=== PATIENT | male | born 1985 | race African-American/Black ===

== ENCOUNTER 2019-10-21 14:10 | Emergency (ER) | payer OTHER, SELFPAY ==
--- NOTE | ~2019-10-21 | XR_ITS ---
XR chest 2V DATE: 10/21/2019 14:47 INDICATION: Dyspnea TECHNIQUE: PA and lateral views COMPARISON: None FINDINGS: Normal heart size. No hilar or mediastinal enlargement. No pulmonary infiltrate or consolid ation, pleural effusion or pulmonary vascular congestion or pneumothorax. Included skeletal structure s are unremarkable other than minimal dextroscoliosis of the thoracic spine. IMPRESSION: No active cardiopulmonary disease Reviewed, dictated and finalized at location A.
[2019-10-21 14:19] VITALS: BP 126/86; PULSE 80; RESP 20; TEMP 36.9; O2SAT 100
--- NOTE | 2019-10-21 14:37 | ED.SOB ---
HPI - SOB/Dyspnea General Chief Complaint: Shortness of Breath/Dyspnea Stated Complaint: sob, asthma Time Seen by Provider: 10/21/19 14:23 Source: patient and family Mode of arrival: ambulatory Limitations: no limitations History of Present Illness HPI Narrative: Patient is a 34-year-old male who presents to the emergency department with complaint of shortness of breath and possible asthma attack. Patient has known history of asthma, but states he has not had any problems with his asthma in quite some time. Patient reports sudden onset of shortness of breath while at rest approximately half an hour ago. Patient denies any cough or chest pain. Patient had nausea and vomiting prior to arrival. He reports chills but denies any fever. He denies any sick contacts. MD elicited complaint: shortness of breath and asthma attack Pertinent past history: asthma Onset (ago): minute(s) (30) Timing: constant Exacerbating factors: nothing Relieving factors: nothing Known history of: asthma Treatment prior to arrival: none Related Data Home Medications Medication Instructions Recorded Confirmed No Home Medications 10/21/19 10/21/19 Allergies Allergy/AdvReac Type Severity Reaction Status Date / Time No Known Allergies Allergy Verified 10/21/19 14:22 Review of Systems Review of Systems: All systems reviewed & are unremarkable except as noted in HPI and below Constitutional: Constitutional: Reports chills and Denies fever(s) ENT: Denies nasal congestion, Denies nasal discharge and Denies sore throat Cardiovascular: Cardiovascular: Denies chest pain Respiratory: Respiratory: Denies cough, Reports dyspnea and Denies wheezing Gastrointestinal: Gastrointestinal: Reports nausea and Reports vomiting PMFSH Past Medical History Medical History (Updated 10/21/19 @ 15:53 by Danica Maurer MD) Asthma Social History Social History (Updated 10/21/19 @ 14:41 by Danica Maurer MD) Smoking status: Current every day smoker Tobacco type: cigarettes Exam Const: General: cooperative, no acute distress and alert Nutritional Appearance: well nourished Orientation/consciousness: patient oriented x3 Limitations: no limitations HENMT: Mouth: Yes lip normal and Yes moist mucous membranes Resp: Effort & Inspection: normal respiratory effort Auscultation: clear to auscultation bilaterally Cardio: Rate: regular rate Rhythm: regular rhythm GI: GI Palp: Yes Soft to palpation and No Tenderness to palpation present (GI) Auscultation: normal bowel sounds Skin: General skin exam: normal color Neuro: General: patient oriented x3 Cognition (Neuro): normal cognition Speech: normal speech Extrem: General: normal to inspection, full ROM and no clubbing, cyanosis or edema Psych: Mental Status: mental status grossly normal Affect: normal affect Attitude: cooperative Course Course Emergency Course: Peak flow assessed by respiratory therapy and noted to be 200 pretreatment. Patient administered 4 puffs of albuterol inhaler and was noted to have improvement in his peak flow to 350 posttreatment. Patient reports improvement in symptoms. Patient is afebrile and is not displaying any cough or other overt illness symptoms. Patient inquired about COVID-19 testing. Patient advised he does not have any other symptoms or abnormalities on exam to warrant testing at this time. Advised referral to on-call primary care physician for follow-up care and to return to the ED if he has worsening respiratory symptoms. Patient sent home with albuterol inhaler used in the emergency department. Vital Signs Vital signs: Vital Signs Temperature 98.4 F 10/21/19 14:19 Pulse Rate 80 10/21/19 14:19 Respiratory Rate 20 10/21/19 14:19 Blood Pressure 126/86 10/21/19 14:19 Pulse Oximetry 100 10/21/19 14:19 Temperature 98.4 F 10/21/19 14:19 Pulse Rate 80 10/21/19 14:19 Respiratory Rate 20 10/21/19 14:19 Blood Pre
[2019-10-21] MEDS: ALBUTEROL SULFATE (*SP) AEROSOL 1 PUFF 4 PUFF INHALATION (15:05)
[2019-10-21 15:59] VITALS: BP 121/80; PULSE 73; RESP 18; O2SAT 100
== END 2019-10-21 16:01 | disposition home or self-care (01) ==
PROVIDERS: Emergency Provider Emergency Medicine
DX: J45.21 Mild intermittent asthma with (acute) exacerbation (principal); F17.210 Nicotine dependence, cigarettes, uncomplicated
CPT/HCPCS: 71046; 99283; A9270

== ENCOUNTER 2019-10-21 17:00 | Emergency (ER) | payer OTHER, SELFPAY ==
[2019-10-21 17:03] VITALS: BP 122/78; PULSE 65; RESP 20; TEMP 37.2; O2SAT 99
--- NOTE | 2019-10-21 18:10 | ED.URI ---
HPI - URI/Sore Throat General Chief Complaint: Upper Respiratory Infection Stated Complaint: my inhaler isn't working Time Seen by Provider: 10/21/19 17:45 Source: patient Mode of arrival: ambulatory Limitations: no limitations History of Present Illness HPI Narrative: This is a 34 year old male that presents to the ER for shortness of breath. Reports he was seen here for this and just discharged. Reports he has continued to feel short of breath. Also reports rhinorrhea. Reports history of seasonal allergies. Denies fever, chest pain, sore throat. Related Data Allergies Allergy/AdvReac Type Severity Reaction Status Date / Time No Known Allergies Allergy Verified 10/21/19 14:22 Review of Systems Review of Systems: Narrative: CONSTITUTIONAL: Denies fever ENT: Reports rhinorrhea. Denies congestion, sore throat, or otalgia. CARDIOVASCULAR: Denies chest pain RESPIRATORY: Reports dyspnea. Denies cough All systems reviewed & are unremarkable except as noted in HPI and below PMFSH Past Medical History Medical History (Updated 10/21/19 @ 18:18 by Jolie Gonzalez PA-C) Asthma Seasonal allergies Social History Social History (Updated 10/21/19 @ 14:41 by Danica Maurer MD) Smoking status: Current every day smoker Tobacco type: cigarettes Exam Narrative: Exam Narrative: GENERAL: Well-appearing, well-nourished, and in no acute distress. HEAD: Normocephalic, atraumatic. EYES: EOMI. ENT: Turbinates swollen and pale. Mucous membranes moist. Oropharynx without tonsillar hypertrophy exudate or other lesions. Bilateral TMs pearly maravilla non-bulging NECK: Supple. No adenopathy or masses. CHEST: Clear to auscultation. No respiratory distress. No wheezes rales or rhonchi HEART: Regular rate and rhythm. No murmur heard. Normal peripheral pulses. EXTREMITIES: Normal range of motion. No edema. SKIN: Warm, dry, no rash. NEURO: No focal deficits. Alert and oriented x3. PSYCH: Normal mood and affect Course Vital Signs Vital signs: Vital Signs Temperature 98.9 F 10/21/19 17:03 Pulse Rate 65 10/21/19 17:03 Respiratory Rate 20 10/21/19 17:03 Blood Pressure 122/78 10/21/19 17:03 Pulse Oximetry 99 10/21/19 17:03 Temperature 98.9 F 10/21/19 17:03 Pulse Rate 65 10/21/19 17:03 Respiratory Rate 20 10/21/19 17:03 Blood Pressure 122/78 10/21/19 17:03 Pulse Oximetry 99 10/21/19 17:03 MDM - URI/Sore Throat MDM Narrative Medical decision making narrative: Patient presents to the ER for shortness of breath. He was just seen here and discharged after being seen for asthma exacerbation. His vitals are normal. Lungs are clear on exam. His chest Xray was normal. Patient has an albuterol inhaler as needed. Will add on a steroid. Was instructed to take Zyrtec daily for his allergies. Patient is to follow up with primary care doctor Critical Care Time Critical Care Time Critical Care Time: No Discharge Plan Discharge Clinical Impression: Asthma attack Qualifiers: Asthma severity: mild Asthma persistence: intermittent Qualified Code(s): J45.21 - Mild intermittent asthma with (acute) exacerbation Patient Disposition: Home, Self-Care Condition: Stable Instructions: Asthma (ED), Allergies (ED) Additional Instructions: Return to the emergency department if you experience fever, chest pain, worsening shortness of breath, or any other symptoms that are concerning to you Take Zyrtec daily. Take steroid as prescribed. Albuterol as needed for shortness of breath Follow-up with primary care doctor Prescriptions: New prednisone 20 mg tablet 40 mg PO DAILY 5 Days Qty: 10 RF: 0 Follow-up/Referrals: Kirill Sheikh Jr., MD [Physician] - 3 Days PHYSICIAN,COAL CUTTER [Primary Care Provider] -
[2019-10-21 18:34] VITALS: BP 122/76; PULSE 60; RESP 20; O2SAT 100
== END 2019-10-21 18:36 | disposition home or self-care (01) ==
PROVIDERS: Emergency Provider Emergency Medicine; PCP Physician Assistant
DX: J45.21 Mild intermittent asthma with (acute) exacerbation (principal); F17.218 Nicotine dependence, cigarettes, with other nicotine-induced disorders
CPT/HCPCS: 99283

== ENCOUNTER 2020-07-31 07:21 | Emergency (ER) | payer SELFPAY ==
[2020-07-31 07:44] VITALS: BP 142/72; PULSE 100; RESP 18; TEMP 36.8; O2SAT 100
--- NOTE | 2020-07-31 07:48 | ED.GENADULT ---
HPI - General Adult General Chief complaint: Unspecified Stated complaint: my body feels like its burning Time Seen by Provider: 07/31/20 07:28 Source: patient Mode of arrival: ambulatory Limitations: no limitations History of Present Illness HPI narrative: 35-year-old male arrives to the emergency department today with complaints of skin irritation cracking and burning. Patient states that it is primarily on his hands, feet and face. Patient notes that he has been trying multiple modalities to treat this. He states that he washes his hands frequently, does not work outside. He does endorse taking hot showers. He uses Vaseline and other moisturizers with no improvement. Related Data Allergies Allergy/AdvReac Type Severity Reaction Status Date / Time No Known Allergies Allergy Verified 07/31/20 07:48 Review of Systems Review of Systems: Narrative: CONSTITUTIONAL: Denies fever, chills, or sweats. EYES: Denies visual changes, redness, or discharge. ENT: Denies rhinorrhea, congestion, sore throat, or otalgia. CARDIOVASCULAR: Denies palpitations, or edema. RESPIRATORY: Denies cough or dyspnea. GASTROINTESTINAL: Denies abdominal pain, nausea, vomiting, or diarrhea. GENITOURINARY: Denies dysuria or hematuria. SKIN: Denies rash or itching. MUSCULOSKELETAL: Denies back pain, joint pain, or myalgia. NEUROLOGIC: Denies headache, numbness, dizziness, or weakness. PSYCHIATRIC: Denies anxiety or depression. Exam Narrative: Exam Narrative: GENERAL: Well-appearing, well-nourished, and in no acute distress. HEAD: Normocephalic, atraumatic. EYES: PERRLA and EOMI. ENT: Nares clear, no rhinorrhea or epistaxis. Mucous membranes moist. NECK: Supple. No adenopathy or masses. No carotid bruits or JVD CHEST: Clear to auscultation. No respiratory distress. No wheezes rales or rhonchi HEART: Regular rate and rhythm. No murmur heard. Normal peripheral pulses. ABDOMEN: Soft, nontender, nondistended, normal active bowel sounds. EXTREMITIES: Normal range of motion. No edema. SKIN: Warm, very dry, scaling throughout the upper extremities. Eczematous dermatitis noted in the folds of the elbows bilaterally and dorsal aspects of the bilateral wrists. NEURO: No focal deficits. Alert and oriented x3. PSYCH: Normal mood and affect. Course Vital Signs Vital signs: Vital Signs Temperature 36.8 C 07/31/20 07:44 Pulse Rate 100 07/31/20 07:44 Respiratory Rate 18 07/31/20 07:44 Blood Pressure 142/72 H 07/31/20 07:44 Pulse Oximetry 100 07/31/20 07:44 Temperature 36.8 C 07/31/20 07:44 Pulse Rate 100 07/31/20 07:44 Respiratory Rate 18 07/31/20 07:44 Blood Pressure 142/72 H 07/31/20 07:44 Pulse Oximetry 100 07/31/20 07:44 Medical Decision Making MDM Narrative Medical decision making narrative: In brief this 35-year-old male came into the emergency department with multiple complaints including skin dryness and irritation in multiple locations. After discussing etiology with the patient and exacerbating factors I feel he likely has an eczematous dermatitis. Patient will be prescribed a steroid cream and recommended to follow-up with dermatology. I also discussed at length varying techniques that the patient can employ such as using lukewarm bathing techniques, intense moisturizers like Eucerin or Aquaphor. Also discussed at length on which soaps to avoid. Medical Records Medical records reviewed: Yes I reviewed the external patient's medical records. Vital Signs Vital Signs: Vital Signs Temperature 36.8 C 07/31/20 07:44 Pulse Rate 100 07/31/20 07:44 Respiratory Rate 18 07/31/20 07:44 Blood Pressure 142/72 H 07/31/20 07:44 Pulse Oximetry 100 07/31/20 07:44 Temperature 36.8 C 07/31/20 07:44 Pulse Rate 100 07/31/20 07:44 Respiratory Rate 18 07/31/20 07:44 Blood Pressure 142/72 H 07/31/20 07:44 Pulse Oximetry 100 07/31/20 07:44 Discharge Plan Discharge Clinical Impression: Ec
== END 2020-07-31 08:04 | disposition home or self-care (01) ==
PROVIDERS: Emergency Provider Emergency Medicine; PCP Family Medicine
DX: L20.82 Flexural eczema (principal)
CPT/HCPCS: 99283

== ENCOUNTER 2020-09-30 13:01 | Emergency (ER) | payer SELFPAY ==
--- NOTE | ~2020-09-30 | US_ITS ---
EXAMINATION: US venous doppler [facility] DATE: 09/30/2020 14:13 INDICATION: Left calf pain. TECHNIQUE: Grayscale ultrasound images without and with compression and Doppler ultrasound images of the left lower extremity veins were obtained. COMPARISON: None. FINDINGS: The visualized portions of left common femoral vein, profunda (deep) femoral vein, femoral vein, popl iteal vein, peroneal veins, posterior tibial veins, and greater saphenous vein outflow are patent. IMPRESSION: 1. No deep venous thrombosis. Reviewed, dictated and finalized at location B.
[2020-09-30 13:31] VITALS: BP 138/84; PULSE 100; RESP 18; TEMP 36.8; O2SAT 100
--- NOTE | 2020-09-30 13:46 | ED.EXTPRO ---
HPI - Extremity Problem General Chief complaint: Extremity Problem,Nontraumatic Stated complaint: left leg pain Time Seen by Provider: 09/30/20 13:37 Source: patient Mode of arrival: ambulatory Limitations: no limitations History of Present Illness HPI Narrative: This is a 35 year old male that presents to the ER for left calf pain and swelling x 3 weeks. Reports the pain was more intermittent. Reports over the last couple of days it has become constant. The area is tender to palpation and has some redness. Denies fever, history of blood clots, recent travel or surgery, or edema. Related Data Home Medications Medication Instructions Recorded Confirmed Allergy (diphenhydramine) 09/30/20 Allergies Allergy/AdvReac Type Severity Reaction Status Date / Time No Known Allergies Allergy Verified 07/31/20 07:48 Review of Systems Review of Systems: Narrative: CONSTITUTIONAL: Denies fever MUSCULOSKELETAL: Reports myalgia. NEUROLOGIC: Denies numbness All systems reviewed & are unremarkable except as noted in HPI and below PMFSH Past Medical History Medical History (Updated 09/30/20 @ 14:52 by Jolie Gonzalez PA-C) No active medical problems Social History Social History (Updated 09/30/20 @ 13:50 by Jolie Gonzalez PA-C) Smoking status: Current every day smoker Gender identity (if verbalized by the patient): Male Exam Narrative: Exam Narrative: GENERAL: Well-appearing, well-nourished, and in no acute distress. HEAD: Normocephalic, atraumatic. EYES: EOMI. CHEST: Clear to auscultation. No respiratory distress. No wheezes rales or rhonchi HEART: Regular rate and rhythm. No murmur heard. Normal peripheral pulses. EXTREMITIES: Normal range of motion. No edema. Tender to palpation of the left lateral calf, small area of redness and swelling (3cm). Normal DP pulses. Normal sensation SKIN: Warm, dry, no rash. NEURO: No focal deficits. Alert and oriented x3. PSYCH: Normal mood and affect Course Vital Signs Vital signs: Vital Signs Temperature 98.2 F 09/30/20 13:31 Pulse Rate 100 09/30/20 13:31 Respiratory Rate 18 09/30/20 13:31 Blood Pressure 138/84 09/30/20 13:31 Pulse Oximetry 100 09/30/20 13:31 Temperature 98.2 F 09/30/20 13:31 Pulse Rate 100 09/30/20 13:31 Respiratory Rate 18 09/30/20 13:31 Blood Pressure 138/84 09/30/20 13:31 Pulse Oximetry 100 09/30/20 13:31 MDM - Extremity (Nontraumatic) MDM Narrative Medical decision making narrative: Patient presents to the emergency department for intermittent left calf pain over the last couple weeks. Over the last couple of days reports redness and swelling to the area. He was afebrile and nontoxic-appearing. Ultrasound of the left lower extremity is without evidence of DVT. Patient will be started on oral antibiotics for cellulitis. He is to follow-up with his primary care doctor. He was given warnings to return to the ER Imaging Data Radiologist's impression: ITS Impressions Venous Doppler Study 09/30/20 14:24 IMPRESSION: 1. No deep venous thrombosis. Critical Care Time Critical Care Time Critical Care Time: No Discharge Plan Discharge Clinical Impression: Cellulitis Qualifiers: Site of cellulitis: extremity Site of cellulitis of extremity: lower extremity Laterality: left Qualified Code(s): L03.116 - Cellulitis of left lower limb Patient Disposition: Home, Self-Care Condition: Stable Instructions: Antibiotic Form, Cellulitis (ED) Additional Instructions: Return to the emergency department if you experience fever, worsening redness and swelling of your leg, or any other symptoms that are concerning to you Tylenol or ibuprofen as needed for discomfort. Take cephalexin as prescribed Follow-up with primary care doctor Prescriptions: New cephalexin 500 mg capsule 500 mg PO Q8H 5 Days Qty: 15 RF: 0 No Action Allergy (diphenhydramine) RF: 0 Follow-up/Refe
--- NOTE | 2020-09-30 14:30 | PC.NURSE ---
Pt to and from CT. No change in patient status.
== END 2020-09-30 15:20 | disposition home or self-care (01) ==
PROVIDERS: Emergency Provider Emergency Medicine
DX: L03.116 Cellulitis of left lower limb (principal); F17.200 Nicotine dependence, unspecified, uncomplicated
CPT/HCPCS: 93971; 99284

== ENCOUNTER 2020-10-22 05:15 | Emergency (ER) | payer SELFPAY ==
[2020-10-22 05:19] VITALS: BP 137/99; PULSE 59; RESP 20; TEMP 36.8; O2SAT 96
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
[2020-10-22 06:00] VITALS: BP 119/92; PULSE 70; RESP 16; O2SAT 99
== END 2020-10-22 06:22 | disposition home or self-care (01) ==
PROVIDERS: Emergency Provider Emergency Medicine
DX: L29.0 Pruritus ani (principal); K64.8 Other hemorrhoids; F17.200 Nicotine dependence, unspecified, uncomplicated
CPT/HCPCS: 99283

== ENCOUNTER 2021-10-07 18:24 | Emergency (ER) | payer BC, SELFPAY ==
[2021-10-07 18:55] VITALS: BP 119/83; PULSE 80; RESP 18; TEMP 36.3; O2SAT 100
[2021-10-07 18:56] LABS: Basophils Percent Auto 1.1 % (0.2-1.2); Eosinophils Percent Auto 0.8 % (0-4.4); Hemoglobin 14.1 g/dL (14.0-18.0); Immature Granulocyte Absolute 0.01 K/mm3 (0.00-0.031); Immature Granulocyte Percent A 0.3 % (0-0.5); Lymphocytes Absolute Auto 1.65 K/mm3 (0.9-3.2); Lymphocytes Percent Auto 45.8 % (18.3-44.2); Mean Corpuscular HGB Conc 32.8 g/dl (32-36); Mean Corpuscular Hemoglobin 28.5 pg (26-34); Mean Platelet Volume 9.5 fl (7.4-10.4); Monocytes Absolute Auto 0.3 K/mm3 (0.1-0.6); Monocytes Percent Auto 9.2 % (2.6-8.5); Neutrophils Absolute Auto 1.5 K/mm3 (1.3-6.7); Neutrophils Percent Auto 42.8 % (45.5-73.1); Platelet Count Result 314 k/mm3 (150-375); Red Blood Count 4.94 M/mm3 (4.6-6.20); White Blood Count 3.6 K/mm3 (4.5-10.0)
[2021-10-07 19:06] LABS: Alanine Aminotransferase 27 U/L (4-50); Albumin Level 4.7 g/dL (3.5-5.1); Alkaline Phosphatase 50 U/L (38-126); Anion Gap 10 mmol/L (8-16); Aspartate Amino Transferase 45 U/L (17-59); Bilirubin,Total 0.2 mg/dL (0.2-1.3); Blood Urea Nitrogen 17 mg/dL (9-20); Calcium 8.6 mg/dL (8.4-10.2); Carbon Dioxide 31 mmol/L (22-30); Chloride 102 mmol/L (98-107); Estimated Glomerular Filt Rate > 60; Glucose 88 mg/dL (65-110); Potassium 3.7 mmol/L (3.4-5.0); Sodium 143 mmol/L (137-145)
[2021-10-07 19:19] VITALS: BP 110/76; PULSE 72; RESP 16; O2SAT 100
--- NOTE | 2021-10-07 19:20 | PC.NURSE ---
Assumed care of pt at this time. Pt alert and upright on stretcher, updated on POC.
[2021-10-07 19:26] LABS: INR 1.2; Prothrombin Time 15.2 Seconds (11.1-14.7)
[2021-10-07 19:27] LABS: Partial Thromboplastin Time 28.2 SECONDS (22.3-36.8)
[2021-10-07 19:29] LABS: Ethanol 242 mg/dL (<10)
[2021-10-07 19:38] LABS: Add Urine Microscopic? YES; Appearance Urine Clear (Clear); Bilirubin Urine Negative (Negative); Blood Urine Negative (Negative); Color Urine Yellow (Yellow); Glucose Urine UA Negative (Negative); Ketones Urine Negative (Negative); Leukocyte Esterase Ur Negative LEU/UL (Negative); Mucus Urine Rare /lpf; Nitrate Urine Negative (Negative); Protein Urine 1+ mg/dL (Negative); RBC Urine 0-2 /hpf (0-2); Specific Grav Ur 1.026 (1.001-1.035); Squamous Epithelial Cell Urine Rare /hpf (Few); Urobilinogen Urine Negative mg/dL (<2.0); WBC Urine 0-3 /hpf
--- NOTE | 2021-10-07 19:45 | ED.GIBLEED ---
HPI - GI Bleed General Chief complaint: GI Bleed Stated complaint: GI bleed Time Seen by Provider: 10/07/21 19:01 Source: patient and family History of Present Illness HPI Narrative: Patient presents with bloody stools as well as hematemesis. Patient ports he had intermittent bloody stools for a long time and thinks he had a hemorrhoid he had an episode of bloody stool approximately 1 week ago with an episode of blood-streaked emesis. He had recurrence of his symptoms today and was concerned and was brought to the ER for evaluation. Family reports he gets these episodes weekly when he drinks. Patient reports he drinks a sixpack of beer a week family reports that he also drinks liquor. Patient denies any abdominal pain, chest pain, lightheadedness, dizziness Related Data Home Medications Medication Instructions Recorded Confirmed Allergy (diphenhydramine) 09/30/20 Allergies Allergy/AdvReac Type Severity Reaction Status Date / Time No Known Allergies Allergy Verified 08/16/21 08:21 Review of Systems Review of Systems: CONSTITUTIONAL: Denies fever, chills, or sweats. EYES: Denies visual changes, redness, or discharge. ENT: Denies rhinorrhea, congestion, sore throat, or otalgia. CARDIOVASCULAR: Denies chest pain, palpitations, or edema. RESPIRATORY: Denies cough or dyspnea. GASTROINTESTINAL: Denies abdominal pain, nausea, vomiting, or diarrhea. GENITOURINARY: Denies dysuria or hematuria. SKIN: Denies rash or itching. MUSCULOSKELETAL: Denies back pain, joint pain, or myalgia. NEUROLOGIC: Denies headache, numbness, dizziness, or weakness. PSYCHIATRIC: Denies anxiety or depression. All systems reviewed & are unremarkable except as noted in HPI and below PMFSH Past Medical History Medical History Asthma No active medical problems Seasonal allergies Social History Social History Smoking status: Current every day smoker Tobacco type: cigarettes Gender identity (if verbalized by the patient): Male Exam Narrative: GENERAL: Well-appearing, well-nourished, and in no acute distress. HEAD: Normocephalic, atraumatic. EYES: PERRLA and EOMI. ENT: Nares clear, no rhinorrhea or epistaxis. Mucous membranes moist. NECK: Supple. No masses. No JVD CHEST: Clear to auscultation. No respiratory distress. No wheezes rales or rhonchi HEART: Regular rate and rhythm. No murmur heard. Normal peripheral pulses. ABDOMEN: Soft, nontender, nondistended, normal active bowel sounds. RECTAL: Small amount of important nonactive bleeding hemorrhoid Hemoccult was negative EXTREMITIES: Normal range of motion. No edema. SKIN: Warm, dry, no rash. NEURO: No focal deficits. Alert and oriented x3. PSYCH: Normal mood and affect. Course Reevaluation(s) Reevaluation #1: Patient resting comfortably results and plan reviewed with patient. Patient is comfortable outpatient plan. Date: 10/07/21 Time: 19:47 Vital Signs Vital signs: Vital Signs Temperature 36.3 C L 10/07/21 18:55 Pulse Rate 80 10/07/21 18:55 Respiratory Rate 18 10/07/21 18:55 Blood Pressure 119/83 10/07/21 18:55 Pulse Oximetry 100 10/07/21 18:55 Temperature 36.3 C L 10/07/21 18:55 Pulse Rate 81 10/07/21 20:01 Respiratory Rate 18 10/07/21 20:01 Blood Pressure 113/80 10/07/21 20:01 Pulse Oximetry 100 10/07/21 20:01 MDM - GI Bleed MDM Narrative Medical decision making narrative: H&P as above, vss, pt looks clinically well, exam with nonacute abdomen, labs unremarkable, additional labs/img considered, symptomatic relief available as needed, on reevaluation pt continues to looks clinically well. Suspect alcoholic gastritis, dns significant hemorrhage, severe sepsis's, bowel obstruction, diverticulitis plan to tx/monitor as op w/ pcm f/u findings/plan discussed with pt, pt agree/comfortable with plan, return precautions given. Patient
[2021-10-07 20:01] VITALS: BP 113/80; PULSE 81; RESP 18; O2SAT 100
== END 2021-10-07 20:02 | disposition home or self-care (01) ==
PROVIDERS: Emergency Medicine; Emergency Provider Emergency Medicine
DX: K64.9 Unspecified hemorrhoids (principal); K29.20 Alcoholic gastritis without bleeding; F10.129 Alcohol abuse with intoxication, unspecified; Y90.8 Blood alcohol level of 240 mg/100 ml or more; J45.909 Unspecified asthma, uncomplicated; F17.210 Nicotine dependence, cigarettes, uncomplicated
CPT/HCPCS: 36415; 80053; 80307; 81001; 85025; 85610; 85730; 86850; 86900; 86901; 99283

== ENCOUNTER 2021-11-21 02:55 | Emergency (ER) | payer BC, SELFPAY ==
[2021-11-21 03:16] VITALS: BP 108/76; PULSE 93; RESP 19; O2SAT 97
[2021-11-21] MEDS: LIDO 1%/EPINEPHRINE 1:100,000 20 ML VIAL 4 ML INFILTRATE (04:22)
--- NOTE | 2021-11-21 04:27 | ED.MALEGU ---
HPI - Male Genitourinary General Chief complaint: Urogenital-Male Stated complaint: boil on alvarez x 2 days Time Seen by Provider: 11/21/21 03:03 History of Present Illness HPI Narrative: Patient is a 36-year-old male who presents ER with concern for abscess. Has developed a swelling over the last 2 days to the left side of his scrotum. No drainage. No fevers or chills or sweats. Has not had issues like this before. No vesicles or pustules noted. Related Data Home Medications Medication Instructions Recorded Confirmed Allergy (diphenhydramine) 09/30/20 Allergies Allergy/AdvReac Type Severity Reaction Status Date / Time No Known Allergies Allergy Verified 08/16/21 08:21 Review of Systems Constitutional: Constitutional: Denies chills and Denies fever(s) Genitourinary: Genitourinary: Denies genital lesions, Denies dysuria, Denies penile discharge and Denies testicular pain Integumentary/Breasts: Skin/Breast: Denies erythema and Denies rash Comments: Abscess PMFSH Past Medical History Medical History (Updated 11/21/21 @ 04:28 by David Rico MD) Asthma No active medical problems Seasonal allergies Surgical History Surgical History (Updated 11/21/21 @ 04:35 by David Rico MD) No pertinent past surgical history Social History Social History Smoking status: Current every day smoker Tobacco type: cigarettes Gender identity (if verbalized by the patient): Male Exam Narrative: GENERAL: Well-appearing, well-nourished, and in no acute distress. HEAD: Normocephalic, atraumatic. CHEST: Clear to auscultation. No respiratory distress. HEART: Regular rate and rhythm. Normal peripheral pulses. : Scrotal abscess left side that is soft and center. No pustules or vesicles. Mild induration surrounding the abscess. No overt cellulitis. Testicles normal without tenderness. Normal-appearing penis that is circumcised. EXTREMITIES: Normal range of motion. No edema. SKIN: Warm, dry, no rash. NEURO: Alert and oriented x3. PSYCH: Normal mood and affect. Course Course Emergency Course: Tolerated I&D. Discharged with antibiotics and pain medication. Vital Signs Vital signs: Vital Signs Pulse Rate 93 06/14/22 03:16 Respiratory Rate 19 11/21/21 03:16 Blood Pressure 108/76 11/21/21 03:16 Pulse Oximetry 97 11/21/21 03:16 Oxygen Delivery Room Air 11/21/21 03:16 Pulse Rate 93 11/21/21 03:16 Respiratory Rate 19 11/21/21 03:16 Blood Pressure 108/76 11/21/21 03:16 Pulse Oximetry 97 11/21/21 03:16 Oxygen Delivery Room Air 11/21/21 03:16 Procedures Abscess I/D scrotum: Date of Incision: 11/21/21 Time of Incision: 04:22 Side (if applicable): left Local Anesthetic: lidocaine 1% and with epi Amount of anesthesia used (mL): 3 Technique: incised with #11 blade Irrigation: No Packing used?: none I&D Results: Pus Discharge Plan Discharge Clinical Impression: Abscess of scrotum Patient Disposition: Home, Self-Care Condition: Stable Instructions: Antibiotic Form, Abscess (ED) Additional Instructions: Return the ER if you have increased pain, you have fever over 100.4 ?F, you have worsening drainage, you have additional concerns. Please soak the area and occasionally apply pressure to help encourage drainage of any additional fluid that may be left. Prescriptions: New sulfamethoxazole-trimethoprim [Bactrim DS] 800-160 mg tablet 1 tablet PO Q12H Qty: 14 0RF hydrocodone-acetaminophen 5-325 mg tablet 1 tablet PO Q6H PRN (Reason: pain) Qty: 10 0RF No Action hydrocortisone-pramoxine 2.5-1 % cream 1 applic RECTAL BID PRN (Reason: hemorrhoids) Qty: 30 0RF omeprazole 40 mg capsule,delayed release(DR/EC) 40 mg PO DAILY Qty: 30 0RF famotidine 40 mg tablet 40 mg PO HS Qty: 30 0RF prednisone 20 mg table
[2021-11-21 04:40] VITALS: BP 105/69; PULSE 72; RESP 18; O2SAT 100
== END 2021-11-21 04:39 | disposition home or self-care (01) ==
PROVIDERS: Emergency Provider Emergency Medicine
DX: N49.2 Inflammatory disorders of scrotum (principal); J45.909 Unspecified asthma, uncomplicated; F17.210 Nicotine dependence, cigarettes, uncomplicated
CPT/HCPCS: 54700; 99283

== ENCOUNTER 2023-03-19 18:35 | Emergency (ER) | payer OTHER, BC, SELFPAY ==
--- NOTE | ~2023-03-19 | CT_ITS ---
EXAMINATION: CT cervical spine wo con DATE: 03/19/2023 21:15 INDICATION: Head injury TECHNIQUE: Computed tomography (CT) of the cervical spine was performed without intravenous contrast. The dose-length product (DLP) was 256.11 mGy-cm. Automated exposure control and iterative reconstruc tion technique were employed. COMPARISON: None FINDINGS: There is reversal of the normal cervical lordosis. Bone alignment is normal. There is no fr acture. The odontoid process is intact. The prevertebral soft tissues are normal. IMPRESSION: 1. No acute osseous abnormality. Reviewed, dictated and finalized at location F.
--- NOTE | ~2023-03-19 | CT_ITS ---
EXAMINATION: CT brain wo con INDICATION: Headache COMPARISON: None TECHNIQUE: Standard unenhanced head CT. The dose-length product (DLP) was 605.33 mGy-cm. The mA was a djusted according to patient size. Iterative reconstruction technique was employed. FINDINGS: No intracranial hemorrhage, acute infarction, or abnormal mass lesion. The ventricles are n ormal. No abnormal mass effect or midline shift. The maravilla-white matter differentiation is normal. The basal cisterns are patent. The orbits are normal. The paranasal sinuses, mastoids and calvarium are normal. IMPRESSION: 1. No acute intracranial abnormality. Reviewed, dictated and finalized at location F.
[2023-03-19 18:37] VITALS: BP 127/90; PULSE 92; RESP 18; TEMP 37.2; O2SAT 98
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
[2023-03-19] MEDS: IBUPROFEN 600 MG TABLET PO (21:43)
[2023-03-19] MEDS: CYCLOBENZAPRINE HCL 10 MG TABLET PO (21:43)
[2023-03-19] MEDS: LIDOCAINE 5% PATCH 1 PATCH TRANSDERM (21:44)
--- NOTE | 2023-03-19 23:12 | PC.NURSE ---
report and care given to KIMBERLY Harmon. all questions answered.
[2023-03-19 23:30] VITALS: BP 129/89; PULSE 80; RESP 19; O2SAT 97
== END 2023-03-19 23:30 | disposition home or self-care (01) ==
PROVIDERS: Emergency Provider Emergency Medicine
DX: S16.1XXA Strain of muscle, fascia and tendon at neck level, initial encounter (principal); J45.909 Unspecified asthma, uncomplicated; V43.62XA Car passenger injured in collision with other type car in traffic accident, initial encounter
CPT/HCPCS: 70450; 72125; 99284; A9270

== ENCOUNTER 2023-05-30 18:21 | Emergency (ER) | payer BC, SELFPAY ==
--- NOTE | ~2023-05-30 | CT_ITS ---
EXAMINATION: CT brain wo con DATE: 05/30/2023 21:34 INDICATION: headache . TECHNIQUE: Computed tomography (CT) of the head was performed without intravenous contrast. The mA wa s adjusted according to patient size. Iterative reconstruction technique was employed. The dose-lengt h product was 605.33 mGy-cm. COMPARISON: 03/19/2023. FINDINGS: No acute intracranial hemorrhage or extra-axial fluid collection. No hydrocephalus, mass, or herniation. No acute ischemic infarct. Unremarkable dural venous sinus attenuation. No acute osseous abnormality. The aerated spaces are clear. IMPRESSION: No acute intracranial process. Reviewed, dictated and finalized at location K. [employer]
[2023-05-30 18:23] VITALS: BP 117/82; PULSE 85; RESP 16; TEMP 36.4; O2SAT 100
--- NOTE | 2023-05-30 21:19 | ED.GENADULT ---
HPI - General Adult General Chief complaint: Unspecified Stated complaint: doesn't feel well Time Seen by Provider: 05/30/23 20:50 History of Present Illness HPI narrative: 38-year-old male present to the emergency department for evaluation for an atypical headache. Patient states approximately 5:00 p.m. he had onset of a frontal headache. Patient does have a recent history dental pain and did complete a course of antibiotics. Related Data Home Medications Medication Instructions Recorded Confirmed Allergy (diphenhydramine) 09/30/20 Allergies Allergy/AdvReac Type Severity Reaction Status Date / Time No Known Allergies Allergy Verified 05/30/23 20:58 Review of Systems Review of Systems: All systems reviewed & are unremarkable except as noted in HPI and below PMFSH Past Medical History Medical History (Updated 05/31/23 @ 00:00 by Pastor Ledesma) Asthma No active medical problems Seasonal allergies Surgical History Surgical History (Updated 11/21/21 @ 04:35 by David Rico MD) No pertinent past surgical history Social History Social History Smoking status: Current every day smoker Tobacco type: cigarettes Gender identity (if verbalized by the patient): Male Exam Narrative: APPEARANCE: Well appearing, no pain, no distress, well-nourished. HEAD: normocephalic, atraumatic. EYES: PERRLA/EOMI, conjunctivae clear. NOSE: Normal no drainage EARS:TMS clear with good light reflex. THROAT: Pharynx clear, no exudate. NECK: Supple. No adenopathy, no masses. RESPIRATORY: Airway patent, respirations nonlabored. Clear to auscultation bilaterally, no rales, rhonchi, wheezing. CARDIOVASCULAR: Regular rate and rhythm without murmurs rubs or gallops. ABDOMINAL: Soft, nontender, nondistended, normal bowel sounds MUSCULOSKELETAL: Moves all extremities. Strength/ROM intact, No edema, No calf tenderness. NEURO: Alert. Cranial nerves II through XII intact. grossly intact SKIN: Warm, dry. Normal Color Course Course Emergency Course: 38-year-old male presenting to the emergency department for evaluation of headache. Patient had a negative head CT. Patient was treated with Compazine and Benadryl. When attempting to re-evaluate the patient he was found to have eloped from the emergency department. Vital Signs Vital signs: Vital Signs Temperature 97.5 F L 05/30/23 18:23 Pulse Rate 85 05/30/23 18:23 Respiratory Rate 16 05/30/23 18:23 Blood Pressure 117/82 05/30/23 18:23 Pulse Oximetry 100 05/30/23 18:23 Temperature 97.5 F L 05/30/23 18:23 Pulse Rate 81 05/30/23 21:51 Respiratory Rate 17 05/30/23 21:51 Blood Pressure 129/98 H 05/30/23 21:51 Pulse Oximetry 100 05/30/23 21:51 Medical Decision Making Vital Signs Vital Signs: Vital Signs Temperature 97.5 F L 05/30/23 18:23 Pulse Rate 85 05/30/23 18:23 Respiratory Rate 16 05/30/23 18:23 Blood Pressure 117/82 05/30/23 18:23 Pulse Oximetry 100 05/30/23 18:23 Temperature 97.5 F L 05/30/23 18:23 Pulse Rate 81 05/30/23 21:51 Respiratory Rate 17 05/30/23 21:51 Blood Pressure 129/98 H 05/30/23 21:51 Pulse Oximetry 100 05/30/23 21:51 Lab Data Lab results reviewed: Yes I reviewed the patient's lab results. Labs: Lab Results 05/30/23 Range/Units 20:59 Influenza A (RT-PCR) Negative (Negative) Influenza B (RT-PCR) Negative (Negative) RSV (RT-PCR) Negative (Negative) SARS-CoV-2 RNA (RT-PCR) Negative (Negative) Imaging Data Radiologist's impression: Impressions Head CT 05/30/23 21:35 IMPRESSION: No acute intracranial process. Discharge Plan Discharge Clinical Impression: Headache Patient Disposition: Elopement After Seen by Prov Condition: Stable Prescriptions: No Action hydrocortisone-pramoxine 2.5-1 % cream 1 applic RECTAL BI
[2023-05-30 21:39] LABS: Influenza A QL RT-PCR Negative (Negative); Influenza B QL RT-PCR Negative (Negative); RSV RNA, RT-PCR Negative (Negative); SARS-CoV-2 RNA PCR Negative (Negative)
[2023-05-30] MEDS: diphenhydrAMINE HCl INJ 50 MG/ML VIAL 25 MG IV PUSH (21:40)
[2023-05-30] MEDS: PROCHLORPERAZINE EDISYLATE 10 MG/2 ML VIAL IV PUSH (21:40)
[2023-05-30 21:51] VITALS: BP 129/98; PULSE 81; RESP 17; O2SAT 100
== END 2023-05-30 22:19 | disposition left against medical advice (07) ==
PROVIDERS: Emergency Provider Emergency Medicine
DX: R51.9 Headache, unspecified (principal); Z20.822 Contact with and (suspected) exposure to COVID-19; J45.909 Unspecified asthma, uncomplicated; F17.210 Nicotine dependence, cigarettes, uncomplicated
CPT/HCPCS: 70450; 87637; 96374; 96375; 99284; J0780; J1200

== ENCOUNTER 2023-10-27 14:06 | Emergency (ER) | payer BC, SELFPAY ==
--- NOTE | ~2023-10-27 | CT_ITS ---
EXAMINATION: CT brain wo con DATE: 10/27/2023 15:25 INDICATION: head injury . TECHNIQUE: Computed tomography (CT) of the head was performed without intravenous contrast. The mA wa s adjusted according to patient size. Iterative reconstruction technique was employed. The dose-lengt h product was 529.67 mGy-cm. COMPARISON: 05/30/2023. FINDINGS: No acute intracranial hemorrhage or extra-axial fluid collection. No hydrocephalus, mass, or herniation. No acute ischemic infarct. Unremarkable dural venous sinus attenuation. No acute osseous abnormality. The aerated spaces are clear. IMPRESSION: No acute intracranial process. Reviewed, dictated and finalized at location K.
--- NOTE | 2023-10-27 14:22 | ED.GENADULT ---
HPI - General Adult General Chief complaint: Head Injury Stated complaint: head injury Time Seen by Provider: 10/27/23 14:10 History of Present Illness HPI narrative: Anisa Haddad is a 38 y/o male who presents with reports of hitting his head on an over hang yesterday while at a restaurant. He reports the area started to bleed immediately after. He did not fall/ no LOC/ no nausea/vomiting He is here today to get it checked out - he states that when he leans forward he has increased pain to an 8/10 to his head. Related Data Home Medications Medication Instructions Recorded Confirmed Allergy (diphenhydramine) 09/30/20 Allergies Allergy/AdvReac Type Severity Reaction Status Date / Time No Known Allergies Allergy Verified 05/30/23 20:58 Review of Systems Review of Systems: All systems reviewed & are unremarkable except as noted in HPI and below PMFSH Past Medical History Medical History Asthma No active medical problems Seasonal allergies Surgical History Surgical History No pertinent past surgical history Social History Social History Smoking status: Current every day smoker Tobacco type: cigarettes Gender identity (if verbalized by the patient): Male Exam Narrative: GENERAL: Well-appearing, well-nourished, and in no acute distress. HEAD: Normocephalic, about 1 cm or less cut to the middle of the forehead mild swelling/ hematoma noted/ no active bleeding EYES: PERRLA and EOMI. ENT: Nares clear, no rhinorrhea or epistaxis. Mucous membranes moist. Oropharynx without tonsillar hypertrophy exudate or other lesions. NECK: Supple. No adenopathy or masses. No carotid bruits or JVD CHEST: Clear to auscultation. No respiratory distress. No wheezes rales or rhonchi HEART: Regular rate and rhythm. No murmur heard. Normal peripheral pulses. ABDOMEN: Soft, nontender, nondistended, normal active bowel sounds. EXTREMITIES: Normal range of motion. No edema. SKIN: Warm, dry, no rash. NEURO: No focal deficits. Alert and oriented x3. PSYCH: Normal mood and affect. Course Vital Signs Vital signs: Vital Signs Temperature 36.6 C 10/27/23 14:53 Pulse Rate 100 10/27/23 14:53 Respiratory Rate 16 10/27/23 14:53 Blood Pressure 135/80 10/27/23 14:53 Pulse Oximetry 100 10/27/23 14:53 Oxygen Delivery Room Air 10/27/23 14:53 Temperature 36.6 C 10/27/23 14:53 Pulse Rate 100 10/27/23 14:53 Respiratory Rate 16 10/27/23 14:53 Blood Pressure 135/80 10/27/23 14:53 Pulse Oximetry 100 10/27/23 14:53 Oxygen Delivery Room Air 10/27/23 14:53 Medical Decision Making MDM Narrative Medical decision making narrative: 38 y/o with complaints of headache from hitting his head yesterday evening. He is on the phone with the restruant when I walked in his ER room to complain about how he hit his head. small less then 1 cm cut to middle forehead with mild swelling Neuro exam intact Plan to treat his pain/ check head ct and update Tdap Discussed plan with pt and he agrees with plan Head CT is negative D/C home Continue to take Tylenol/ Ibuprofen for headaches Keep your wound clean and dry Follow up with your PCP in 1 week If you develop any worsening symptoms or concerns return to the ER. Medical Records Medical records reviewed: Yes I reviewed the external patient's medical records. Vital Signs Vital Signs: Vital Signs Temperature 36.6 C 10/27/23 14:53 Pulse Rate 100 10/27/23 14:53 Respiratory Rate 16 10/27/23 14:53 Blood Pressure 135/80 10/27/23 14:53 Pulse Oximetry 100 10/27/23 14:53 Oxygen Delivery Room Air 10/27/23 14:53 Temperature 36.6 C 10/27/23 14:53 Pulse Rate 100 10/27/23 14:53 Respiratory Rate 16 10/27/23 14:53 Blood Pressure 135/80
[2023-10-27 14:53] VITALS: BP 135/80; PULSE 100; RESP 16; TEMP 36.6; O2SAT 100
[2023-10-27] MEDS: ACETAMINOPHEN 500 MG TABLET 1000 MG PO (14:56)
== END 2023-10-27 16:02 | disposition home or self-care (01) ==
PROVIDERS: Emergency Provider Nurse Practitioner Family; PCP Internal Medicine
DX: S09.90XA Unspecified injury of head, initial encounter (principal); F17.210 Nicotine dependence, cigarettes, uncomplicated; J45.909 Unspecified asthma, uncomplicated; W22.09XA Striking against other stationary object, initial encounter; Z23 Encounter for immunization
CPT/HCPCS: 70450; 90471; 99284; A9270

== ENCOUNTER 2023-11-26 09:52 | Emergency (ER) | payer BC, SELFPAY ==
--- NOTE | ~2023-11-26 | US_ITS ---
EXAMINATION: US venous doppler LE RT DATE: 11/26/2023 10:50 INDICATION: Posterior right lower limb pain TECHNIQUE: Grayscale ultrasound images without and with compression and Doppler ultrasound images of the right lower extremity veins were obtained. COMPARISON: None. FINDINGS: The visualized portions of right common femoral vein, profunda (deep) femoral vein, femoral vein, pop liteal vein, posterior tibial veins, peroneal veins, gastrocnemius vein and greater saphenous vein ou tflow are patent. IMPRESSION: 1. No deep venous thrombosis in the right lower limb. Reviewed, dictated and finalized at location A.
[2023-11-26 09:58] VITALS: BP 115/77; PULSE 91; RESP 16; TEMP 36.7; O2SAT 100
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
[2023-11-26 11:07] LABS: Basophils Percent Auto 0.8 % (0.2-1.2); Eosinophils Percent Auto 0.8 % (0-4.4); Hematocrit 40.5 % (42.0-52.0); Hemoglobin 13.4 g/dL (14.0-18.0); Lymphocytes Absolute Auto 0.66 K/mm3 (0.9-3.2); Lymphocytes Percent Auto 27.6 % (18.3-44.2); Mean Corpuscular HGB Conc 33.1 g/dl (32-36); Mean Corpuscular Hemoglobin 28.9 pg (26-34); Mean Corpuscular Volume 87.3 fl (80-100); Mean Platelet Volume 9.8 fl (7.4-10.4); Monocytes Absolute Auto 0.3 K/mm3 (0.1-0.6); Monocytes Percent Auto 10.5 % (2.6-8.5); Neutrophils Absolute Auto 1.4 K/mm3 (1.3-6.7); Neutrophils Percent Auto 60.3 % (45.5-73.1); Platelet Count Result 195 k/mm3 (150-375); Red Blood Count 4.64 M/mm3 (4.6-6.20); Red Cell Distribution Width 14.7 % (11.5-14.5); White Blood Count 2.4 K/mm3 (4.5-10.0)
[2023-11-26 11:18] LABS: Anion Gap 4 mmol/L (4-12); Blood Urea Nitrogen 11 mg/dL (9-20); Calcium 9.1 mg/dL (8.4-10.2); Carbon Dioxide 28 mmol/L (22-30); Chloride 105 mmol/L (98-107); Estimated CRCL calculation 81 ml/min; Estimated Glomerular Filt Rate > 60; Glucose 90 mg/dL (65-110); INR 1.1; Magnesium 2.1 mg/dL (1.6-2.3); Potassium 3.8 mmol/L (3.4-5.0); Prothrombin Time 15.2 Seconds (11.1-14.7); Sodium 137 mmol/L (137-145)
[2023-11-26 11:19] LABS: Partial Thromboplastin Time 29.1 Seconds (22.3-36.8)
[2023-11-26 12:00] VITALS: BP 119/80; PULSE 71; RESP 18; O2SAT 100
[2023-11-26 12:29] VITALS: BP 117/76; PULSE 69; RESP 15; TEMP 36.9; O2SAT 100
== END 2023-11-26 12:30 | disposition home or self-care (01) ==
PROVIDERS: Emergency Provider Physician Assistant; PCP Internal Medicine
DX: R25.2 Cramp and spasm (principal); J45.909 Unspecified asthma, uncomplicated; F17.210 Nicotine dependence, cigarettes, uncomplicated
CPT/HCPCS: 36415; 80048; 83735; 85025; 85610; 85730; 93971; 99284

== ENCOUNTER 2025-01-11 15:57 | Emergency (ER) | payer SELFPAY ==
--- NOTE | ~2025-01-11 | XR_ITS ---
EXAMINATION: XR thoracic spine 3V, XR lumbar spine 2-3V DATE: 01/11/2025 17:00 INDICATION: Mid and lower back pain TECHNIQUE: 1. One AP, lateral and lateral swimmer's views of the thoracic spine were obtained. 2. AP, lateral and coned-down lateral lumbosacral views of the lumbar spine were obtained. COMPARISON: None. FINDINGS: Thoracic spine: Normal alignment. Vertebral body and disc heights are normal. Discectomies and prosthetic discs at C4 -C5 and C5-C6 and mild disc height loss with mild degenerative endplate changes at C3-C4. Visualized portions of the lungs are clear with no pleural effusion or pneumothorax. Cardiomediastinal silhouett e is normal. Lumbar spine: 6 degrees dextrocurvature centered at the upper lumbar spine. Straightening of the normal lumbar lord osis on the lateral projection. Vertebral body heights are normal. Mild disc height loss at L3-L4. Mi ld lower lumbar facet osteoarthritis. Sacrum and bilateral visualized bowel gas pattern is unremarkab le. Sacroiliac joints are unremarkable. IMPRESSION: 1. 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 2. Mild cervical spondylosis with prosthetic discs at C4-C5 and C5-C6. Intervening thoracic spine is unremarkable. Reviewed, dictated and finalized at location A. IMPRESSION: 1. 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 2. Mild cervical spondylosis with prosthetic discs at C4-C5 and C5-C6. Interven ing thoracic spine is unremarkable.
--- OUTSIDE RECORDS SUMMARY | 2025-01-11 16:00 | XMS_ITS | Clinical Summary ---
Author Organization [facility] Address [address] 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 This disclosure is being madepursuant to the Care Everywhere program and may not contain all information available regarding this patient. Last updated 18.[employer] [facility] Allergies No known active allergies Medications * Be aware that medications may not be up to date on this document. Alwaysverify current medications with the patient. triamcinolone 0.1 % ointment - AQUAPHOR OINTMENT 50:50 OINT Apply to affected area 2 times daily as needed 1 g 07/15/2020 Active Social History Tobacco Use Types Packs/Day Years Used Date Smoking Tobacco: Never Assessed Sex and Gender Information Value Date Recorded Sex Assigned at Not on file Legal Sex Male 5:32 AM PATENT ATTORNEY Gender Identity Not on file Sexual Orientation Not on file Last Filed Vital Signs Vital Sign Reading Time Taken Comments Blood Pressure 114/87 07/15/2020 2:00 PM PATENT ATTORNEY Pulse 105 07/15/2020 10:33 AM PATENT ATTORNEY Temperature 36.4 C (97.6 F) 07/15/2020 10:19 AM PATENT ATTORNEY Respiratory Rate 16 07/15/2020 10:19 AM PATENT ATTORNEY Oxygen Saturation 100% 07/15/2020 2:00 PM PATENT ATTORNEY Inhaled Oxygen Concentration - - Weight 63.5 kg (140 lb) 07/15/2020 10:19 AM PATENT ATTORNEY Height 175.3 cm (5' 9) 07/15/2020 10:19 AM PATENT ATTORNEY Body Mass Index 20.67 07/15/2020 10:19 AM PATENT ATTORNEY Plan of Treatment Health Maintenance Due Date Last Done Comments LIPID TESTING 1984 HIV SCREENING 02/21/1999 HEPATITIS C SCREENING 02/17/2002 DTAP/TDAP/TD VACCINES (1 - Tdap) 02/21/2003 HEPATITIS B VACCINE (1 of 3 - 19+ 3-dose series) 02/21/2003 HPV VACCINE (1 - 3-dose SCDM series) 02/21/2011 COVID-19 VACCINE ( - 2023-2 5 season) 2024 DEPRESSION SCREENING 06/10/2024 INFLUENZA VACCINE (#1) 2025 ZOSTER VACCINE (1 of 2) 02/21/2034 HIB VACCINE Aged Out No longer eligi ble based on patient's age to complete this topic MENINGOCOCCAL (Group B) VACC INE SHARED DECISION-MAKING Aged Out No longer eligibl e based on patient's age to complete this topic MENINGOCOCCAL GROUPS A/C/Y/W VACCINE Aged Out No longer eligible b ased on patient's age to complete this topic PNEUMOCOCCAL VACCINE Aged Out No long er eligible based on patient's age to complete this topic
[2025-01-11 16:38] VITALS: BP 130/76; PULSE 81; RESP 16; TEMP 36.6; O2SAT 100
--- NOTE | 2025-01-11 16:43 | ED.BACK ---
HPI - Back Pain/Injury General Chief Complaint: Back Pain/Injury <Twan Fried APRN - Last Filed: 01/11/25 16:45> Stated Complaint: back pain <Twan Fried APRN - Last Filed: 01/11/25 16:45> Time Seen by Provider: 01/11/25 19:22 <Twan Fried APRN - Last Filed: 01/11/25 16:45> 39-year-old male presents to the ER complaining of mid low back pain for approximately 1 week. Patient denies any apparent injury to his back. Patient reports having history of herniated this to his upper spine and had surgery 1 year ago. Patient denies any saddle anesthesia, loss of bowel or bladder, weakness or any other symptoms. Patient has been taking Tylenol ibuprofen with some relief. Focused HPI: GENERAL: Well-appearing, well-nourished, and in no acute distress. HEAD: Normocephalic, atraumatic. CHEST: Clear to auscultation. ?No respiratory distress. HEART: Regular rate and rhythm.? NEURO: ?Alert and oriented x3. Back: No cervical, thoracic, lumbar point tenderness, crepitus, or step-offs. Tenderness to palpation throughout the mid low back. No CVA tenderness. Patient screened in triage and initial orders placed.? ?Additional care and disposition to be based upon?diagnostic testing and treatment. <Twan Fried APRN - Last Filed: 01/11/25 16:45> History of Present Illness HPI Narrative: Agree with HPI <David Rico MD - Last Filed: 01/11/25 20:06> Related Data Home Medications: Home Medications ?Medication ?Instructions ?Recorded ?Confirmed ?Last Taken ?Type Allergy (diphenhydramine) 09/30/20 Unknown History <Twan Fried APRN - Last Filed: 01/11/25 16:45> Allergies/Adverse Reactions: Allergies Allergy/AdvReac Type Severity Reaction Status Date / Time No Known Allergies Allergy Verified 01/11/25 20:01 <Twan Fried APRN - Last Filed: 01/11/25 16:45> Review of Systems Review of Systems: All systems reviewed & are unremarkable except as noted in HPI and below <David Rico MD - Last Filed: 01/11/25 20:06> Constitutional: Constitutional: Reports no additional constitutional complaints <David Rico MD - Last Filed: 01/11/25 20:06> Gastrointestinal: Gastrointestinal: Reports no additional gastrointestinal complaints <David Rico MD - Last Filed: 01/11/25 20:06> Genitourinary: Genitourinary: Reports no additional male genitourinary complaints <David iRco MD - Last Filed: 01/11/25 20:06> Musculoskeletal: Musculoskeletal: Reports no additional musculoskeletal complaints <David Rico MD - Last Filed: 01/11/25 20:06> Neurologic: Reports system reviewed and no additional complaints, except as documented <David Rico MD - Last Filed: 01/11/25 20:06> PMFSH Past Medical History Medical History: Medical History Asthma No active medical problems Seasonal allergies <Twan Fried APRN - Last Filed: 01/11/25 16:45> Surgical History Surgical History: Surgical History No pertinent past surgical history <Twan Fried APRN - Last Filed: 01/11/25 16:45> Social History Social History: Social History Smoking status: Current every day smoker Tobacco type: cigarettes Gender identity (if verbalized by the patient): Male <Twan Fried APRN - Last Filed: 01/11/25 16:45> Exam Narrative: GENERAL: Well-appearing, well-nourished, and in no acute distress. HEAD: Normocephalic, atraumatic. ENT: Mucous membranes moist. CHEST: Clear to auscultation. No respiratory distress. HEART: Regular rate and rhythm. Normal peripheral pulses. Back: No reproducible midline tenderness the T/L-spine. Mild bilateral paraspinal tenderness of the upper lumbar region. EXTREMITIES: Normal range of motion. No edema. SKIN: Warm, dry, no rash. NEURO: Alert and oriented x3. PSYCH: Normal mood and affect. <David Rico MD - Last Filed: 01/11/25 20:06> Course Course Emergency Course: Toradol for pain. Discussed imaging results. Discharge with anti-inflammatories muscle relaxers. <David Rico MD - Last Filed: 01/11/25 20:06> Vital Signs Vital signs: Vital Signs Temperature 98 F 01/11/25 16:38 Pulse Rate 81 01/11/25 16:38 Respiratory Rate 16 01/11/25 16:38 Blood Pressure 130/76 01/11/25 16:38 Pulse Oximetry 100 01/11/25 16:38 Oxygen Delivery Room Air 01/11/25 16:38 Temperature 98 F 01/11/25 16:38 Pulse Rate 81 01/11/25 16:38 Respiratory Rate 16 01/11/25 16:38 Blood Pressure 130/76 01/11/25 16:38 Pulse Oximetry 100 01/11/25 16:38 Oxygen Delivery Room Air 01/11/25 16:38 <Twan Fried APRN - Last Filed: 01/11/25 16:45> Vital Signs Temperature 98 F 01/11/25 16:38 Pulse Rate 81 01/11/25 16:38 Respiratory Rate 16 01/11/25 16:38 Blood Pressure 130/76 01/11/25 16:38 Pulse Oximetry 100 01/11/25 16:38 Oxygen Delivery Room Air 01/11/25 16:38 Temperature 98 F 01/11/25 16:38 Pulse Rate 81 01/11/25 16:38 Respiratory Rate 16 01/11/25 16:38 Blood Pressure 130/76 01/11/25 16:38 Pulse Oximetry 100 01/11/25 16:38 Oxygen Delivery Room Air 01/11/25 16:38 <David Rico MD - Last Filed: 01/11/25 20:06> MDM - Back Pain/Injury Imaging Data Radiologist's impression: ITS Impressions Lumbar Spine X-Ray 01/11/25 17:29 IMPRESSION: 1. 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 2. Mild cervical spondylosis with prosthetic discs at C4-C5 and C5-C6. Intervening thoracic spine is unremarkable. Thoracic Spine X-Ray 01/11/25 17:29 IMPRESSION: 1. 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 2. Mild cervical spondylosis with prosthetic discs at C4-C5 and C5-C6. Intervening thoracic spine is unremarkable. <David Rico MD - Last Filed: 01/11/25 20:06> Discharge Plan Discharge Clinical Impression: Strain of lumbar region <Twan Fried APRN - Last Filed: 01/11/25 16:45> Patient Disposition: Home <Twan Fried APRN - Last Filed: 01/11/25 16:45> Condition: Stable <Twan Fried APRN - Last Filed: 01/11/25 16:45> Instructions: Acute Low Back Pain (ED), Lower Back Exercises (ED) <Twan Fried APRN - Last Filed: 01/11/25 16:45> Additional Instructions: Please return to the emergency department if you develop severe pain that is not controlled by pain medications or if you are unable to walk because of pain or weakness. Return to the emergency department immediately if you develop fevers, loss of bowel or bladder control (dribbling of urine or having accidents you wouldn't normally have), inability to urinate, numbness of your genital or anal area, or weakness/numbness of your legs or arms as these could all be signs of a serious medical emergency. <Twan Fried APRN - Last Filed: 01/11/25 16:45> Patient Language: Swedish <Twan Fried APRN - Last Filed: 01/11/25 16:45> Prescriptions: New cyclobenzaprine 10 mg tablet 10 mg PO TID PRN (Reason: muscle spasm) Qty: 20 0RF naproxen 375 mg tablet 375 mg PO BID Qty: 14 0RF No Action hydrocortisone-pramoxine 2.5-1 % cream 1 applic RECTAL BID PRN (Reason: hemorrhoids) Qty: 30 0RF omeprazole 40 mg capsule,delayed release(DR/EC) 40 mg PO DAILY Qty: 30 0RF famotidine 40 mg tablet 40 mg PO HS Qty: 30 0RF sulfamethoxazole-trimethoprim [Bactrim DS] 800-160 mg tablet 1 tablet PO Q12H Qty: 14 0RF hydrocodone-acetaminophen 5-325 mg tablet 1 tablet PO Q6H PRN (Reason: pain) Qty: 10 0RF cyclobenzaprine 10 mg tablet 10 mg PO TID PRN (Reason: muscle spasm) Qty: 14 0RF prednisone 20 mg tablet 40 mg PO DAILY 5 Days Qty: 10 0RF Allergy (diphenhydramine) cephalexin 500 mg capsule 500 mg PO Q8H 5 Days Qty: 15 0RF <Twan Fried APRN - Last Filed: 01/11/25 16:45> Follow-up/Referrals: Stephen,MD Qamar [Primary Care Provider] - 1 Week <Twan Fried APRN - Last Filed: 01/11/25 16:45>
--- OUTSIDE RECORDS SUMMARY | 2025-01-11 19:41 | XMS_ITS | Continuity of Care Document ---
Author Organization [facility] [employer] [place] Address [address] [place] [address] [address] [place] [address] Phone Care Team Providers Care Enterprise Services Manager Name Role Phone Zenon PT,MPT,ATC, Noam Unavailable Unavai lable Procedures Procedure Date Therapeutic Activities Neuromuscular Re-Ed Therapeutic Exercise Therapeutic Activities Neuromuscular Re-Ed Therapeutic Exercise Progress Note Therapeutic Activities Neuromuscular Re-Ed Therapeutic Exercise Therapeutic Activities Neuromuscular Re-Ed Therapeutic Exercise Therapeutic Activities Neuromuscular Re-Ed Therapeutic Exercise Therapeutic Activities Neuromuscular Re-Ed Therapeutic Exercise Manual Therapy Therapeutic Activities Neuromuscular Re-Ed Therapeutic Exercise Dry Needling 1-2 muscles Therapeutic Activities Neuromuscular Re-Ed Therapeutic Exercise Manual Therapy Therapeutic Activities Neuromuscular Re-Ed Therapeutic Exercise Manual Therapy PT Evaluation Moderate Complexity Therapeutic Activities Therapeutic Exercise Manual Therapy Hot or Cold Pack Electrical Stimulation Therapeutic Activities Neuromuscular Re-Ed Therapeutic Exercise Manual Therapy Hot or Cold Pack Therapeutic Activities Neuromuscular Re-Ed Therapeutic Exercise Therapeutic Activities Neuromuscular Re-Ed Therapeutic Exercise Therapeutic Activities Neuromuscular Re-Ed Therapeutic Exercise Therapeutic Activities Neuromuscular Re-Ed Therapeutic Exercise Therapeutic Activities Neuromuscular Re-Ed Therapeutic Exercise Manual Therapy Progress Note Therapeutic Activities Neuromuscular Re-Ed Therapeutic Exercise Manual Therapy Hot or Cold Pack Therapeutic Activities Neuromuscular Re-Ed Therapeutic Exercise Manual Therapy Hot or Cold Pack Electrical Stimulation Therapeutic Activities Neuromuscular Re-Ed Therapeutic Exercise Manual Therapy Therapeutic Activities Neuromuscular Re-Ed Therapeutic Exercise Manual Therapy Therapeutic Activities Neuromuscular Re-Ed Therapeutic Exercise Manual Therapy Therapeutic Activities Neuromuscular Re-Ed Therapeutic Exercise Manual Therapy PT Evaluation Moderate Complexity Neuromuscular Re-Ed Therapeutic Exercise Manual Therapy Therapeutic Activities Neuromuscular Re-Ed Therapeutic Exercise Therapeutic Activities Neuromuscular Re-Ed Therapeutic Exercise Therapeutic Activities Neuromuscular Re-Ed Therapeutic Exercise Therapeutic Activities Neuromuscular Re-Ed Therapeutic Exercise Therapeutic Activities Neuromuscular Re-Ed Therapeutic Exercise Therapeutic Activities Neuromuscular Re-Ed Therapeutic Exercise Therapeutic Activities Neuromuscular Re-Ed Therapeutic Exercise Therapeutic Activities Neuromuscular Re-Ed Therapeutic Exercise Manual Therapy Therapeutic Activities Neuromuscular Re-Ed Therapeutic Exercise Manual Therapy Therapeutic Activities Therapeutic Exercise Neuromuscular Re-Ed Manual Therapy Therapeutic Activities Neuromuscular Re-Ed Manual Therapy Therapeutic Exercise Electrical Stimulation Hot or Cold Pack PT Evaluation Low Complexity Therapeutic Activities Therapeutic Exercise Manual Therapy Advance Directives Directive Yes / No Effective Date File Name No Information Encounters Encounter Description Practice Location Reason(s) For Visit Diagnoses Date Provider Providers Copied on [facility] [place], [place], [place], [id number], tel:[phone] [place] No Information 5 [place], [place], [place]. [facility], [place], [place], [address], [place] tel:[phone] [place] No Information 2- 5 [place]. . Referring Provider: Nico Ojeda 1929 [facility] [address], [place], [address]. tel:[phone] [place], [place] [address] [facility], [place], [place], [address], [place] tel:[phone] [place] No Information b-0 5-202 5 [place]. . Referring Provider: Nico Ojeda 1929 [facility] [address], [place], [address]. tel:[phone] [place], [place] [address] [facility], [place], [place], [address], [place] tel:[phone] [place] No Information 0 3- 5 [place]. . Referring Provider: Nico Ojeda 1929 [facility] [address], [place], [address]. tel:[phone] [place] [address] [facility], [place], [place], [address], [place] tel:[phone] [place] No Information 5 [place]. . Referring Provider: Nico Ojeda 1929 [facility] [address], [place], [address]. tel:[phone] [place] [address] [facility], [place], [place], [address], [place] tel:[phone] [place] No Information 5 [place]. . Referring Provider: Nico Ojeda 1929 [facility] [address], [place], [address]. tel:[phone] [place] [address] [facility], [place], [place], [address], [place] tel:[phone] [place] No Information - 5 [place]. . Referring Provider: Nico Ojeda 1929 [facility] [address], [place], [address]. tel:[phone] [facility] [facility], [place], [place], [address], [place] tel:[phone] [place] No Information 5 [place]. . Referring Provider: Nico Ojeda, [address] [address], [place], [address]. tel:[phone] [facility] [facility], [place], [address], [place] tel:[phone] [place] No Information 5 [place]. . Referring Provider: Nico Ojeda [address] [address], [place], [address]. tel:[phone] [facility]2121 [facility] [address], [place], [place], [address], [place] tel:[phone] [place] No Information 5 [place]. . Referring Provider: Nico Ojeda, [address] [address], [place], [address]. tel:[phone] [facility]2[address] [facility] [address], [place], [place], [address], [place] tel:[phone] [place] No Information 5 [place], [place]. Referring Provider: Nico Ojeda [address] [address], [place], [address]. tel:[phone] [facility] [facility], [place], [address], [place] tel:[phone] [place] No Information 4 Halina Webster. [address] [facility], [address], [place], [address], [place]. tel:[phone] Referring Provider: Justin Samaniego, [address] [place] [address], [address]. tel:[phone] [facility], [place], [address], [place] tel:[phone] [place] No Information Aug-1 4 Rudy Mae. . Referring Provider: Justin Samaniego, [address] [place] [address], [place], [address]. tel:[phone] [facility], [address] [facility], [place], [address], [place] tel:[phone] [place] No Information Mar-0 - 4 Lucinda Bronson. . Referring Provider: Justin Samaniego, [address] [place] [address], [place], [address]. tel:[phone] [facility], [address] [facility], [place], [address], [place] tel:[phone] [place] No Information Aug-0 4 Yosvany Yanez. . Referring Provider: Justin Samaniego, [address] [place] [address], [place], [address]. tel:[phone] [facility] [facility], [place], [address], [place] tel:[phone] [place] No Information b-2 4 Yosvany Santiago . Referring Provider: Justin Samaniego, [address] [place] [address], [place], [address]. tel:[phone] [facility] [facility], [place], [address], [place] tel:[phone] [place] No Information b-2 0 4 Kendra Ibarra. [address] [facility], [address], [place], [address], [place]. tel:[phone] Referring Provider: Justin Samaniego, [address] [place] [address], [place], [address]. tel:[phone] [facility] [facility], [place], [place], [address], [place] tel:[phone] [place] No Information 4 Muehl Darin. [address] [facility], [address], [place], [facility], . tel:[phone] Referring Provider: Justin Samaniego, [address] [address], [place], [address]. tel:[phone] [place] [address] [address], [place], [place], [address], tel:[phone] [place] No Information 4 Josephehl Darin. [address] [facility], [address], [place], [place], [facility], . tel:[phone] Referring Provider: Justin Samaniego, [address] [place] [address], [address]. tel:[phone] [place] [address] [address], [place], [place], [address], tel:[phone] [place] No Information 4 Lucinda Bronson. . Referring Provider: Justin Malicksara, [address] [place] [address], [address]. tel:[phone], [place], [place], [address], tel:[phone] [place] No Information 4 Halina Webster. [address] [facility], [address], [place], [place], [facility], . tel:[phone] Referring Provider: Justin Samaniego, [address], [address]. tel:[phone], [place], [address], tel:[phone] [place] No Information 4 Laura Bernstein. . Referring Provider: Justin Malicksara, [address], [address]. tel:[phone] [facility] [address], [place], [place], [address], [place] tel:[phone] [place] No Information 4 Lucinda Bronson. . Referring Provider: Justin Samaniego, [address], [place], [address]. tel:[phone] [facility] [address], [place], [place], [address], [place] tel:[phone] [place] No Information 4 Halina Darin. [address] [facility], [address], [place], [address], [place]. tel:[phone] Referring Provider: Justin Samaniego, [address], [place], [address]. tel:[phone] [facility] [address] [facility], [place], [address], [place] tel:[phone] [place] No Information 3 Dellamano Urbano. . Referring Provider: Jordan Lyons [address], [address]. tel:[phone] [address], [place], [place], [address], [place] tel:[phone] [place] No Information 3 Dellamano Urbano. . Referring Provider: Jordan Lyons, [address], [address]. tel:[phone] [place] [address] [address], [place], [place], [address], [place] tel:[phone] [place] No Information 3 Dellamano Urbano. . Referring Provider: Jordan Lyons [address], [address]. tel:[phone] [place] [address] [facility], [place], [address], tel:[phone] [place] No Information Dec-1 3 Dellamano Urbano. . Referring Provider: Jordan Lyons [address], [address]. tel:[phone] [place], [place] [address] [address], [place], [place], [address], tel:[phone] [place] No Information Dec-1 3 Dellamano Urbano. . Referring Provider: Jordan Lyons [address] [address], [place], [address]. tel:[phone] [place], [place] [address] [facility], [place], [address], tel:[phone] [place] No Information Dec-0 3 Dellamano Urbano. . Referring Provider: Jordan Lyons [address], [address]. tel:[phone] [place] [address] [address] [facility], [place], [address], [place] tel:[phone] [place] No Information Dec-0 3 Dellamano Urbano. . Referring Provider: Jordan Lyons [address] [address], [place], [address]. tel:[phone] [place] [address] [address], [place], [place], [address], tel:[phone] [place] No Information Apr-2 3 Dellamano Urbano. . Referring Provider: Jordan Lyons [address], [address]. tel:[phone] [address], [place], [place], [address], [place] tel:[phone] [place] No Information 2 3 Dellamano Urbano. . Referring Provider: Jordan Lyons [address], [address]. tel:[phone] [place], [place] [address] [place] [address], [id number], tel:[phone] [place] No Information 3 Ish Clement. . Referring Provider: Jordan Lyons [address], [address]. tel:[phone], [id number], tel:[phone] [place] No Information 3 Halina Webster. [address] [facility], [address], [place], [place], [facility], [place]. tel:[phone] Referring Provider: Jordan Lyons [facility] [address], [address]. tel:[phone], [id number], tel:[phone] [place] No Information 3 Laura Bernstein. . Referring Provider: Jordan Lyons [facility] [address], [address]. tel:[phone] Family History Family Member Type Diagnosis Age At Onset No Information Payers Payer name Insurance type Covered republican ID Renoa estuardo(s) Lien-LOP LI 00 Social History Type Description Quantity Date Captured Comments Sex Male Smoking Status No Information Chief Complaint And Reason For Visit No Information Reason For Referral Reason For Referral No Information Plan Of Treatment Date Type Action Status Goal Tobacco Cessation Counseling completed Goal Tobacco cessation counseling completed Referral Ordered: Referrals: Specialist. Evaluate and Treat (related to Adjustment disorder with depressed mood) ordered Referral Ordered: Referrals: Specialist. Evaluate and Treat (related to Adjustment disorder with depressed mood) ordered Referral Ordered: Depression: Depression management program timeframe: 1 Day. (related to Depression) ordered Referral Ordered: Clinical Psychology (related to Depression) ordered Referral Ordered: Referrals: Specialist. Evaluate and Treat (related to Adjustment disorder with depressed mood) ordered History Of Present Illness Encounter Date Complaint History Of Prese nt Illness No Information Functional Status Date Functional Assessmen t No Information Instructions Date Instruction Additional Infor robert Giving encouragement to exercise Related to Overweight Giving encouragement to exercise Related to Overweight Assessments Type Assessment Date No Information Patient Care Teams Name Effective Dates (start - stop) Status Members No Information
--- OUTSIDE RECORDS SUMMARY | 2025-01-11 19:41 | XMS_ITS | Clinical Summary ---
Author Organization [facility] Address [address] [place] [address] Care Team Providers Care Sheet Folder Name Role Phone Unavailable Primary Care Provider Unavailabl e Source Comments [facility],non-owned Affiliates and Associated Physician Practices is amultiple site organization consisting of ambulatory clinics and hospital sitesin [place], [place], [place] and [place]. This disclosure is being madepursuant to the Care Everywhere program and may not contain all information available regarding this patient. 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 Gender Identity Not on file Sexual Orientation Not on file Last Filed Vital Signs Vital Sign Reading Time Taken Comments Blood Pressure 114/87 07/15/2020 2:00 PM CRIME SCENE PHOTOGRAPHER Pulse 105 07/15/2020 10:33 AM CRIME SCENE PHOTOGRAPHER Temperature 36.4 C (97.6 F) 07/15/2020 10:19 AM CRIME SCENE PHOTOGRAPHER Respiratory Rate 16 07/15/2020 10:19 AM CRIME SCENE PHOTOGRAPHER Oxygen Saturation 100% 07/15/2020 2:00 PM CRIME SCENE PHOTOGRAPHER Inhaled Oxygen Concentration - - Weight 63.5 kg (140 lb) 07/15/2020 10:19 AM CRIME SCENE PHOTOGRAPHER Height 175.3 cm (5' 9) 07/15/2020 10:19 AM CRIME SCENE PHOTOGRAPHER Body Mass Index 20.67 07/15/2020 10:19 AM CRIME SCENE PHOTOGRAPHER Plan of Treatment Health Maintenance Due Date [...]
[2025-01-11] MEDS: KETOROLAC (*BKC) 60 MG/2 ML VIAL IM (20:50)
[2025-01-11 20:59] VITALS: BP 125/80; PULSE 76; RESP 18; TEMP 36.6; O2SAT 100
[2025-01-11 21:00] VITALS: BP 125/80; PULSE 76; RESP 18; TEMP 36.6; O2SAT 100
== END 2025-01-11 21:03 | disposition home or self-care (01) ==
PROVIDERS: Emergency Provider Emergency Medicine; PCP Internal Medicine
DX: S39.012A Strain of muscle, fascia and tendon of lower back, initial encounter (principal); M47.812 Spondylosis without myelopathy or radiculopathy, cervical region; M47.816 Spondylosis without myelopathy or radiculopathy, lumbar region; F17.210 Nicotine dependence, cigarettes, uncomplicated; J45.909 Unspecified asthma, uncomplicated; X58.XXXA Exposure to other specified factors, initial encounter
CPT/HCPCS: 72072; 72100; 96372; 99283; J1885